=== PATIENT | female | born 1990 | race Asian ===

== ENCOUNTER 2018-05-31 02:00 | Inpatient (IN) | payer OTHER, SELFPAY ==
[~2018-05-31] VITALS: Ht 165.1 cm; Wt 88.0 kg
[2018-05-31] MEDS ORDERED: OXYTOCIN/0.9 % SODIUM CHLORIDE 1,000 ML IV SCH (03:02)
[2018-05-31] MEDS ORDERED: LR 500 ML IV ONE ×2 (03:02→09:06)
[2018-05-31] MEDS ORDERED: NALBUPHINE HCL 10 MG/ML AMP IVP PRN ×2 (03:15→22:45)
[2018-05-31] MEDS ORDERED: NALBUPHINE HCL 10 MG/ML AMP IM PRN (03:15)
[2018-05-31 03:44] LABS: BASOPHILS % (AUTO) 0.2 % (0.0-2.0); EOSINOPHILS # (AUTO) 0.1 K/uL (0.0-0.4); EOSINOPHILS % (AUTO) 0.9 % (0.0-4.0); HEMATOCRIT 38.2 % (36-48); HEMOGLOBIN 12.7 g/dL (12.0-16.0); LYMPHOCYTES # (AUTO) 1.9 K/uL (1.0-5.5); LYMPHOCYTES % (AUTO) 18.2 % (20.5-51.5); MEAN CORPUSCULAR HEMOGLOBIN 30 pg (27-31); MEAN CORPUSCULAR HGB CONC 33 % (32-36); MEAN CORPUSCULAR VOLUME 90 fL (79.0-98.0); MONOCYTES # (AUTO) 0.6 K/uL (0.0-1.0); MONOCYTES % (AUTO) 5.7 % (1.7-9.3); NEUTROPHILS # (AUTO) 7.8 K/uL (1.8-7.7); PLATELET COUNT (AUTO) 252 K/uL (130-430); RED BLOOD CELL COUNT(AUTO) 4.25 MIL/uL (4.2-6.2); RED CELL DISTRIBUTION WIDTH 12.5 % (9.0-15.0); WHITE BLOOD COUNT (AUTO) 10.4 K/uL (4.8-10.8)
[2018-05-31] MEDS: LR 1,000 ML IV SCH ×3 (04:00→19:12)
[2018-05-31 05:01] VITALS: BP_SYST 125
[2018-05-31] MEDS ORDERED: FENT2mCg/mL-ROPIVA0.2%/NS EPID 150 ML EP SCH (09:15)
[2018-05-31 10:45] VITALS: BP_SYST 113
[2018-05-31] MEDS ORDERED: ROPIVACAINE 0.2% 100 ML ONE ×2 (10:59→19:08)
[2018-05-31] MEDS ORDERED: fentaNYL CITRATE/PF 100 MCG/2 ML AMP ONE (10:59)
[2018-05-31] MEDS ORDERED: CEFAZOLIN 2 GM IVPB PREMIX 50 ML IV ONE (20:30)
[2018-05-31] MEDS ORDERED: ONDANSETRON HCL 4 MG/2 ML VIAL IVP ONE (21:45)
[2018-05-31] MEDS ORDERED: OXYTOCIN 10 UNIT/ML VIAL IV ONE (21:45)
[2018-05-31] MEDS ORDERED: MORPHINE SULFATE 10MG/10ML PF AMP EP ONE (21:45)
[2018-05-31] MEDS ORDERED: NS IRRIG SOLN 1000 ML IR ONE (21:45)
[2018-05-31] MEDS ORDERED: BUPIVACAINE /DEX PF 0.75% SPINAL 2 ML AMP INJ ONE (21:45)
[2018-05-31] MEDS ORDERED: LR 1,000 ML IV.SOLN IV ONE (21:45)
[2018-05-31] MEDS ORDERED: OXYTOCIN 10 UNIT/ML VIAL ONE (22:30)
[2018-05-31] MEDS ORDERED: ONDANSETRON HCL 4 MG/2 ML VIAL IVP PRN (22:45)
[2018-05-31] MEDS ORDERED: fentaNYL CITRATE/PF 100 MCG/2 ML AMP IVP PRN (22:45)
[2018-05-31] MEDS ORDERED: KETOROLAC TROMETHAMINE 60 MG/2 ML VIAL IM PRN (22:45)
[2018-05-31] MEDS ORDERED: NALOXONE HCL 0.4 MG/ML AMP (NARCAN) IVP PRN ×2 (22:45)
[2018-05-31] MEDS ORDERED: DIPHENHYDRAMINE INJ 50 MG/ML VIAL IVP PRN (22:45)
[2018-05-31] MEDS ORDERED: MORPHINE SULFATE 10MG/10ML PF AMP EP SCH (22:45)
[2018-05-31] MEDS ORDERED: METOCLOPRAMIDE HCL 10 MG/2 ML VIAL IVP PRN (22:45)
[2018-06-01] MEDS ORDERED: LR 1,000 ML IV SCH ×2 (01:07→01:19)
[2018-06-01] MEDS ORDERED: OXYTOCIN/0.9 % SODIUM CHLORIDE 1,000 ML IV ONE ×2 (01:07→01:19)
[2018-06-01] MEDS ORDERED: LANOLIN 7 GM OINT. TP PRN (01:15)
[2018-06-01] MEDS ORDERED: HYDROcodone/ACETAMIN 5-325 MG TAB (NORCO/ VICODIN) PO PRN (05:00)
[2018-06-01] MEDS: KETOROLAC TROMETHAMINE 30 MG VIAL IVP SCH ×3 (05:00→18:24)
[2018-06-01] MEDS ORDERED: OXYCODONE/ACETAMINOPHEN 5-325 TABLET PO PRN ×2 (05:00)
[2018-06-01] MEDS ORDERED: IBUPROFEN 600 MG TABLET PO SCH ×2 (06:00)
[2018-06-01] MEDS ORDERED: CEFAZOLIN 1 GM IVPB PREMIX 50 ML IV SCH (06:00)
[2018-06-01] MEDS: CEFAZOLIN 1 GM IVPB PREMIX 50 ML IV SCH ×3 (06:00→18:25)
[2018-06-01 06:07] LABS: HEPATITIS B SURFACE AG Negative (Negative)
[2018-06-01 08:20] LABS: RUBELLA AB, IgG 2.58 index (Immune >0.99)
[2018-06-01] MEDS ORDERED: BUPIVACAINE /EPINEPHRINE/PF 0.5% 30 ML VIAL INJ ONE (15:57)
[2018-06-01] MEDS ORDERED: TEMAZEPAM 15 MG CAPSULE PO PRN (21:00)
[2018-06-01] MEDS: SIMETHICONE 80 MG TAB.CHEW PO PRN (23:51)
[2018-06-01] MEDS: IBUPROFEN 600 MG TABLET PO SCH (23:51)
[2018-06-02] MEDS: IBUPROFEN 600 MG TABLET PO SCH ×3 (05:44→17:56)
[2018-06-02 06:57] LABS: BASOPHILS % (AUTO) 0.3 % (0.0-2.0); EOSINOPHILS # (AUTO) 0.1 K/uL (0.0-0.4); EOSINOPHILS % (AUTO) 0.8 % (0.0-4.0); HEMATOCRIT 33.8 % (36-48); HEMOGLOBIN 11.6 g/dL (12.0-16.0); LYMPHOCYTES # (AUTO) 2.3 K/uL (1.0-5.5); LYMPHOCYTES % (AUTO) 17.5 % (20.5-51.5); MEAN CORPUSCULAR HEMOGLOBIN 31 pg (27-31); MEAN CORPUSCULAR HGB CONC 34 % (32-36); MEAN CORPUSCULAR VOLUME 90 fL (79.0-98.0); MONOCYTES # (AUTO) 0.5 K/uL (0.0-1.0); MONOCYTES % (AUTO) 3.7 % (1.7-9.3); NEUTROPHILS % (AUTO) 77.7 % (40.0-70.0); PLATELET COUNT (AUTO) 234 K/uL (130-430); RED BLOOD CELL COUNT(AUTO) 3.78 MIL/uL (4.2-6.2); RED CELL DISTRIBUTION WIDTH 12.8 % (9.0-15.0); WHITE BLOOD COUNT (AUTO) 12.9 K/uL (4.8-10.8)
[2018-06-02] MEDS: SIMETHICONE 80 MG TAB.CHEW PO PRN (12:06)
[2018-06-02] MEDS: DOCUSATE SODIUM 100 MG CAPSULE PO PRN (12:06)
[2018-06-02] MEDS: SENNOSIDES/DOCUSATE SODIUM 1 TAB TABLET(SENOKOT-S) PO PRN (12:06)
[2018-06-03] MEDS: IBUPROFEN 600 MG TABLET PO SCH ×4 (05:39→17:54)
[2018-06-03] MEDS: SIMETHICONE 80 MG TAB.CHEW PO PRN (12:14)
[2018-06-03] MEDS: DOCUSATE SODIUM 100 MG CAPSULE PO PRN (12:15)
[2018-06-03] MEDS: SENNOSIDES/DOCUSATE SODIUM 1 TAB TABLET(SENOKOT-S) PO PRN (12:15)
[2018-06-04] MEDS: IBUPROFEN 600 MG TABLET PO SCH ×4 (00:14→18:06)
== END 2018-06-04 18:50 | disposition home or self-care (01) | DRG 540 ==
LOC: SPU 02:00
PROVIDERS: ADMIT Obstetrics & Gynecology; ATTEND Obstetrics & Gynecology
PROC: 10D00Z1 Extraction of Products of Conception, Low, Open Approach (ICD-10-PCS; principal; 2018-05-31 21:00)
DX: O36.8130 Decreased fetal movements, third trimester, not applicable or unspecified (principal); O24.429 Gestational diabetes mellitus in childbirth, unspecified control; O76 Abnormality in fetal heart rate and rhythm complicating labor and delivery; O77.0 Labor and delivery complicated by meconium in amniotic fluid; O62.2 Other uterine inertia; Z3A.39 39 weeks gestation of pregnancy; Z37.0 Single live birth
CPT/HCPCS: 36415; 82962; 85025; 86592; 86762; 86886; 86900; 86901; 87340; J0690; J1200; J1885; J2274; J2300; J2405; J2590; J2795; J3010; J3490; J7120